=== PATIENT | female | born 1955 | race Two or more races ===

== ENCOUNTER 2019-03-22 15:34 | Emergency (ER) | payer MEDICAID ==
[~2019-03-22] VITALS: Ht 160 cm; Wt 52.2 kg
[2019-03-22 15:55] VITALS: BP 113/69
== END 2019-03-22 17:39 | disposition home or self-care (01) ==
LOC: ER 15:40
DX: J40 Bronchitis, not specified as acute or chronic (principal); Z88.5 Allergy status to narcotic agent
CPT/HCPCS: 71045-TC

== ENCOUNTER 2019-06-02 02:22 | Emergency (ER) | payer BC ==
[~2019-06-02] VITALS: Ht 157.5 cm; Wt 52.2 kg
[2019-06-02 02:25] VITALS: BP 122/74
== END 2019-06-02 04:03 | disposition home or self-care (01) ==
LOC: ER 02:26
DX: J32.9 Chronic sinusitis, unspecified (principal); Z88.5 Allergy status to narcotic agent
CPT/HCPCS: 71045-TC